=== PATIENT | female | born 1965 | race Caucasian/White ===

== ENCOUNTER → 2017-08-14 | Outpatient (CLI) | payer OTHER ==
[2015-12-14 12:36] VITALS: BMI 35.2
[~2017-08-14] MED LIST: ACET250T19 PO; ALB6.7R INH; AMOX-559 PO; ASPI-757 PO; BUTA1CAP4 PO; BUTA1CAP51 PO; FLUT16SP19 NS; FURO-45 PO; HYDR-385 PO; HYDR-389 PO; HYDR-4309 PO; L.AC1CAP6 PO; MELO-149 PO; MELO-207 PO; METO-734 PO; OMEP-125 PO; ONDA4TAB PO; ONDA4TAB SL; OXYC-865 PO; OXYM-1 ENA; PHEN118S56 PO; POTA-23 PO; PROM-110 PO; PSEU120T68 PO; Return to Work; TOPI-23 PO
[2017-08-14 16:48] LABS: PLATELET COUNT, AUTOMATED 216 K/uL (150-450)
== END ==
LOC: LAB 15:50
PROVIDERS: ATTEND Nurse Practitioner Family
DX: M25.50 Pain in unspecified joint (principal)
CPT/HCPCS: 36415; 82040; 82247; 82310; 82374; 82435; 82565; 82947; 84075; 84132; 84155; 84295; 84443; 84450; 84460; 84520; 85025; 85651; 86038; 86140; 86200; 86225; 86430

== ENCOUNTER → 2017-08-15 | Outpatient (CLI) | payer OTHER ==
[2015-12-14 12:36] VITALS: BMI 35.2
--- NOTE | 2017-08-15 17:13 | RADIOLOGY IMAGING REPORT ---
FACILITY: [facility] - [place] PATIENT NAME: Brittany Santos : 1965 MR: [id number] V: [id number] EXAM DATE: ORDERING PHYSICIAN: GOGO MARQUES TECHNOLOGIST: Location: [facility] [place] Patient: Brittany Santos : 1965 Visit/Account:[id number] Date of Sevice: 08/15/2017 Exam type: KNEE 1 OR 2 VIEW BILATERAL History: arthralgia Comparison: Left knee January 10, 2017. Findings: Two views of both knees were submitted for interpretation. Left knee again noted are old postsurgical changes from open reduction internal fixation of the commi nuted fractures through the lateral tibial plateau with a side plate and screws. At least moderate o steoarthritic changes are again identified involving the lateral compartment and mild arthritic hernandez es involving the medial compartment and mild to moderate osteoarthritic changes involving the patello femoral compartment similar to the prior study. There appears to be a small effusion in the suprapat ellar bursa. Old fracture to the proximal left fibula also again noted Right knee is mild narrowing of the medial compartment of the right knee. No significant narrowing i nvolving the lateral compartment and mild narrowing involving the patellofemoral compartment of the r ight knee. No lytic or blastic bone lesion seen IMPRESSION: 1. Postoperative changes from open reduction internal fixation of an old depressed lateral tibial pl ateau fracture on the left with associated degenerative changes as described above. Old fracture thr ough the proximal left fibula also again noted Mild osteoarthritic changes involving the medial and patellofemoral compartments of the right knee Report Dictated By: Eva Kinsey MD at 08/15/2017 5:03 PM Report E-Signed By: Eva Kinsey MD at 08/15/2017 5:08 PM WSN:[email or web address]
--- NOTE | 2017-08-16 14:42 | RADIOLOGY IMAGING REPORT ---
FACILITY: [facility] - [place] PATIENT NAME: Brittany Santos : 1965 MR: [id number] V: [id number] EXAM DATE: ORDERING PHYSICIAN: GOGO MARQUES TECHNOLOGIST: Location: [facility] - [place] Patient: Brittany Santos : 1965 Visit/Account:[id number] Date of Sevice: 08/15/2017 WRIST BILAT 1 OR 2 VIEWS HISTORY: arthralgia COMPARISON: None FINDINGS: Right wrist: No acute fracture or dislocation. Joint spaces are well-preserved. No erosions or perios titis. Chronic ossicle adjacent to the ulnar styloid Left wrist: No acute fracture or dislocation. Joint spaces are well-preserved. No erosions or periost itis. Chronic ossicle adjacent to the ulnar styloid. IMPRESSION: 1. No radiographic evidence of significant arthritis. Report Dictated By: Delano Lau MD at 08/16/2017 8:13 AM Report E-Signed By: Delano Lau MD at 08/16/2017 2:39 PM WSN:[id number]
== END ==
LOC: RAD 16:20
PROVIDERS: ATTEND Nurse Practitioner Family
DX: M17.11 Unilateral primary osteoarthritis, right knee (principal); M25.50 Pain in unspecified joint

== ENCOUNTER → 2017-08-31 | Outpatient (CLI) | payer OTHER ==
[2015-12-14 12:36] VITALS: BMI 35.2
== END ==
LOC: LAB 17:53
PROVIDERS: ATTEND Internal Medicine Rheumatology
DX: M25.50 Pain in unspecified joint (principal); R53.82 Chronic fatigue, unspecified
CPT/HCPCS: 36415; 82784; 84160; 84165; 84443; 85651; 86038; 86140; 86160; 86200; 86225; 86255; 86430; 86803

== ENCOUNTER → 2017-09-18 | Outpatient (CLI) | payer OTHER ==
[2015-12-14 12:36] VITALS: BMI 35.2
[~2017-09-18] MED LIST changes: +NITR-105 PO
== END ==
LOC: LAB 11:00
PROVIDERS: ATTEND Nurse Practitioner Family
DX: R31.9 Hematuria, unspecified (principal); R30.9 Painful micturition, unspecified; R35.0 Frequency of micturition; B96.20 Unspecified Escherichia coli [E. coli] as the cause of diseases classified elsewhere
CPT/HCPCS: 81001; 87077; 87088; 87186

== ENCOUNTER → 2017-12-28 | Outpatient (CLI) | payer OTHER ==
[2015-12-14 12:36] VITALS: BMI 35.2
[~2017-12-28] MED LIST changes: +DULO30CA6 PO; +DULO60CA56 PO
[2017-12-28 14:02] LABS: PLATELET COUNT, AUTOMATED 207 K/uL (150-450)
== END ==
LOC: LAB 13:37
PROVIDERS: ATTEND Nurse Practitioner Family
DX: R19.7 Diarrhea, unspecified (principal); R53.83 Other fatigue
CPT/HCPCS: 36415; 82040; 82150; 82247; 82310; 82374; 82435; 82565; 82947; 83630; 83690; 84075; 84132; 84155; 84295; 84443; 84450; 84460; 84520; 85025; 85651; 86140; 87045; 87324; 87338; 87449

== ENCOUNTER → 2018-01-03 | Outpatient (CLI) | payer OTHER ==
[2015-12-14 12:36] VITALS: BMI 35.2
[~2018-01-03] MED LIST changes: +POTA20TA85 PO
[2018-01-03 15:54] VITALS: BP 137/90
== END ==
LOC: SPU 09:38
PROVIDERS: ATTEND Nurse Practitioner Family
DX: E87.6 Hypokalemia (principal)
CPT/HCPCS: 36415; 82310; 82374; 82435; 82565; 82947; 84132; 84295; 84520

== ENCOUNTER → 2018-01-04 | Outpatient (CLI) | payer OTHER ==
[2015-12-14 12:36] VITALS: BMI 35.2
[~2018-01-04] MED LIST changes: +COSYNTROPIN 0.25 MG/ML VIAL IVP ONE; +DEXTROSE 5%(*) 100 ML BAG 100 ML IVPB PRN; +LIDOCAINE/SOD BICARB 8.4% SYR ID PRN; +NS(*) 0.9% 100 ML BAG 100 ML IVPB PRN
[2018-01-04 16:11] VITALS: BP_SYST 76
== END ==
LOC: SPU 14:44
PROVIDERS: ATTEND Nurse Practitioner Family
DX: R19.7 Diarrhea, unspecified (principal); R51 Headache; M79.1 Myalgia
CPT/HCPCS: 36415; 82533; 82784; 84165; 96374; J0834

== ENCOUNTER → 2018-01-05 | Outpatient (CLI) | payer OTHER ==
[2015-12-14 12:36] VITALS: BMI 35.2
[~2018-01-05] MED LIST changes: -COSYNTROPIN 0.25 MG/ML VIAL IVP ONE; -DEXTROSE 5%(*) 100 ML BAG 100 ML IVPB PRN; -LIDOCAINE/SOD BICARB 8.4% SYR ID PRN; -NS(*) 0.9% 100 ML BAG 100 ML IVPB PRN
== END ==
LOC: LAB 07:14
PROVIDERS: ATTEND Nurse Practitioner Family
DX: E87.6 Hypokalemia (principal); K52.9 Noninfective gastroenteritis and colitis, unspecified
CPT/HCPCS: 36415; 82310; 82374; 82435; 82565; 82947; 83497; 84132; 84295; 84520

== ENCOUNTER → 2018-01-08 | Outpatient (CLI) | payer OTHER ==
[2015-12-14 12:36] VITALS: BMI 35.2
[~2018-01-08] MED LIST changes: +IOPAMIDOL 76% 75 ML INFUS BTL 75 ML ONE
--- NOTE | 2018-01-08 18:11 | RADIOLOGY IMAGING REPORT ---
FACILITY: [facility] PATIENT NAME: Brittany Santos : 1965 MR: [id number] V: [id number] EXAM DATE: ORDERING PHYSICIAN: GOGO MARQUES TECHNOLOGIST: Location: [facility] - [place] Patient: Brittany Santos : 1965 Visit/Account:[id number] Date of Sevice: 01/08/2018 ABDOMEN/PELVIS W/WO CONTRAST HISTORY: Chronic severe diarrhea TECHNIQUE: Axial images acquired through the abdomen/pelvis both with and without IV contrast.. Darrel nal and sagittal reformatting also performed. Dose Lowering Technique One of the following dose optimization techniques was utilized in the performance of this exam: Autom ated exposure control; adjustment of the mA and/or kV according to the patient's size; or use of an i terative reconstruction technique. Specific details can be referenced in the facility's radiology C T exam operational policy. CONTRAST: 75 mL Isovue-370 COMPARISON: None. FINDINGS: Visualized lung bases: Negative. Hepatobiliary: Postsurgical changes from a cholecystectomy Spleen: Negative. Adrenals: Negative. Pancreas: Negative. Kidneys ureters and bladder: Negative. Genitalia: Hysterectomy GI: There Is a mild diverticulosis of the sigmoid colon although no CT evidence of acute diverticuli tis. No evidence of bowel obstruction or bowel wall thickening. The stomach is moderately distended with fluid likely related to oral contrast Vessels/spaces/nodes: Negative. Bones/soft tissues: Mild spondylotic changes lumbar spine Additional findings: None pertinent. IMPRESSION: Post surgical changes from cholecystectomy and hysterectomy Mild diverticulosis sigmoid colon although no CT evidence of acute diverticulitis No evidence of bowel obstruction or bowel wall thickening Report Dictated By: Eva Kinsey MD at 01/08/2018 6:01 PM Report E-Signed By: Eva Kinsey MD at 01/08/2018 6:07 PM WSN:[email or web address]
== END ==
LOC: CT 01-05 06:52
PROVIDERS: ATTEND Nurse Practitioner Family
DX: K57.30 Diverticulosis of large intestine without perforation or abscess without bleeding (principal); Z90.49 Acquired absence of other specified parts of digestive tract; Z90.79 Acquired absence of other genital organ(s); M47.896 Other spondylosis, lumbar region
CPT/HCPCS: 74178; Q9967

== ENCOUNTER → 2018-01-11 | Outpatient (CLI) | payer OTHER ==
[2015-12-14 12:36] VITALS: BMI 35.2
[~2018-01-11] MED LIST changes: +COLE1TAB6 PO; -IOPAMIDOL 76% 75 ML INFUS BTL 75 ML ONE
[2018-01-11 10:57] LABS: PLATELET COUNT, AUTOMATED 191 K/uL (150-450)
== END ==
LOC: LAB 10:44
PROVIDERS: ATTEND Nurse Practitioner Family
DX: R11.10 Vomiting, unspecified (principal); R19.7 Diarrhea, unspecified
CPT/HCPCS: 36415; 82040; 82247; 82310; 82374; 82435; 82565; 82947; 83630; 83735; 84075; 84132; 84155; 84295; 84439; 84443; 84450; 84460; 84480; 84520; 85025; 87045; 87177

== ENCOUNTER → 2018-01-16 | Outpatient (CLI) | payer OTHER ==
[2015-12-14 12:36] VITALS: BMI 35.2
[~2018-01-16] MED LIST changes: +DIPH-1 PO
[2018-01-16 14:30] LABS: PLATELET COUNT, AUTOMATED 205 K/uL (150-450)
== END ==
LOC: LAB 14:10
PROVIDERS: ATTEND Nurse Practitioner Family
DX: R11.10 Vomiting, unspecified (principal); R10.13 Epigastric pain
CPT/HCPCS: 36415; 82040; 82150; 82247; 82310; 82374; 82435; 82565; 82947; 83690; 84075; 84132; 84155; 84295; 84450; 84460; 84520; 85025

== ENCOUNTER → 2018-01-29 | Outpatient (CLI) | payer OTHER ==
[2015-12-14 12:36] VITALS: BMI 35.2
== END ==
LOC: LAB 10:38
PROVIDERS: ATTEND Nurse Practitioner Family
DX: E87.6 Hypokalemia (principal)
CPT/HCPCS: 36415; 82310; 82374; 82435; 82565; 82947; 84132; 84295; 84520

== ENCOUNTER → 2018-02-21 | Outpatient (CLI) | payer OTHER ==
[2015-12-14 12:36] VITALS: BMI 35.2
[~2018-02-21] MED LIST changes: +DULO30CA6 ASDIRECTED
== END ==
LOC: LAB 15:18
PROVIDERS: ATTEND Nurse Practitioner Family
DX: E87.6 Hypokalemia (principal); R19.7 Diarrhea, unspecified
CPT/HCPCS: 36415; 82310; 82374; 82435; 82565; 82947; 84132; 84295; 84520

== ENCOUNTER → 2018-03-10 | Outpatient (CLI) | payer OTHER ==
[2015-12-14 12:36] VITALS: BMI 35.2
[~2018-03-10] MED LIST changes: +PREG75CA60 PO
== END ==
LOC: LAB 12:10
PROVIDERS: ATTEND Nurse Practitioner Family
DX: E87.6 Hypokalemia (principal); R11.10 Vomiting, unspecified; R19.7 Diarrhea, unspecified
CPT/HCPCS: 36415; 82310; 82374; 82435; 82565; 82947; 84132; 84295; 84520

== ENCOUNTER → 2018-04-26 | Outpatient (CLI) | payer OTHER ==
[2015-12-14 12:36] VITALS: BMI 35.2
[~2018-04-26] MED LIST changes: +CYCL10TA29 PO
--- NOTE | 2018-04-26 18:24 | RADIOLOGY IMAGING REPORT ---
FACILITY: [facility] - [place] PATIENT NAME: Brittany Santos : 1965 MR: [id number] V: [id number] EXAM DATE: ORDERING PHYSICIAN: CORI SHIRLEY TECHNOLOGIST: Location: [facility] - [place], [place] Patient: Brittany Santos : 1965 Visit/Account:[id number] Date of Sevice: 04/26/2018 EXAMINATION: VENOUS DOPP LOW LEFT EXTREMITY COMPARISON: None Available HISTORY: Left lower extremity edema. FINDINGS: Standard left lower extremity Doppler ultrasound with color flow and spectral analysis is p erformed. The common femoral, femoral, and popliteal veins are widely patent and compress appropriately. The v isualized calf veins and the proximal greater saphenous vein are patent. No popliteal fluid collection. The contralateral common femoral vein is patent. IMPRESSION: No left lower extremity deep venous thrombosis. Report Dictated By: Cl Rodriguez MD at 04/26/2018 6:19 PM Report E-Signed By: Cl Rodriguez MD at 04/26/2018 6:20 PM WSN:[id number]
== END ==
LOC: US 17:16
PROVIDERS: ATTEND Nurse Practitioner Family
DX: R60.0 Localized edema (principal)